=== PATIENT | male | born 1975 | race African-American/Black ===

== ENCOUNTER 2021-06-12 11:56 | Emergency (ER) | payer OTHER ==
[~2021-06-12] VITALS: Ht 177.8 cm; Wt 85.0 kg
[2021-06-12 15:35] LABS: HEMATOCRIT. 42.4 % (42.0-52.0); LYMPHOCYTES % 16.6 % (20.0-50.0); MEAN CORPUSCULAR VOLUME 93.4 fL (80.0-94.0); MONOCYTES % 3.9 % (2.0-8.0); NEUTROPHILS % 78.5 % (40.0-76.0); RED BLOOD CELL COUNT 4.53 mill/uL (4.7-6.1); RED CELL DISTRIBUTION WIDTH 14.1 % (11.6-14.6)
[2021-06-12 15:36] LABS: CHLORIDE 102 mEq/L (98-107)
[2021-06-12 15:58] LABS: MEAN PLATELET VOLUME 9.2 fl (7.4-10.4); PLATELET 132 x1000/uL (130-400)
[2021-06-12 17:16] VITALS: BP 138/92
== END 2021-06-12 17:22 | disposition home or self-care (01) ==
LOC: ER 11:56
DX: S09.8XXA Other specified injuries of head, initial encounter (principal); R55 Syncope and collapse; X58.XXXA Exposure to other specified factors, initial encounter; Y93.89 Activity, other specified; Y92.89 Other specified places as the place of occurrence of the external cause; Y99.8 Other external cause status; D64.9 Anemia, unspecified; I10 Essential (primary) hypertension; Z87.891 Personal history of nicotine dependence; R74.01 Elevation of levels of liver transaminase levels
CPT/HCPCS: 36415; 71045; 80053; 83880; 84484; 85025; 93005; 99285